=== PATIENT | female | born 1990 | race Caucasian/White ===

== ENCOUNTER 2018-01-18 17:26 | Emergency (ER) | payer BC, SELFPAY ==
[2018-01-18 17:39] VITALS: BP 156/89; PULSE 91; RESP 18; TEMP 36.7; O2SAT 100; BMI 26.6
--- NOTE | 2018-01-18 17:51 | HMH.EDUTC ---
[facility] [place] Disposition Clinical Impression: Tonsillitis with exudate Disposition: Home, Self-Care Condition on Discharge: Good Instructions: DI for Strep Throat Additional Instructions: * Strep test negative but your throat is very concerning for bacterial infection * Start antibiotic ERICKSON and be sure to take as ordered for the FULL length of time although you should start to feel better in 24-48 hours. * change toothbrush and toothpaste 24-48 hours after starting antibiotic * Monitor Temp. Tylenol every 4 hours as needed no more then 5 times a day or 4000mg in 24 hours and/or ibuprofen every 6 hours as needed no more then 3200mg in 24 hours (as long as your primary care doctor has told you that it is ok to take both) for fever/aches/pain. ER if fever no less than 101 despite tylenol and Ibuprofen * Encourage fluids, water, gatorade, powerade, pedialyte if /toddler/child * cold fluids, popsicles, ice cream feel good * you are contagious until you have taken the antibiotic for 24 hours. * Avoid kissing anyone, including parents. No eating or drinking after anyone. You are contagious. * * Your throat swab was sent for culture. Those results are typically sent to your primary care. Be sure to follow up in 2-3 days if no improvement so they can review those results and treat if necessary. If you don't have primary care, I recommend you get one but in the mean time, you will have to return to a walk in clinic. Prescriptions: Amoxicillin [Amoxicillin 500mg Cap] 500 mg PO TID #30 cap Referrals: Marichuy Newsome MD [Primary Care Provider] - (Follow up IMMEDIATELY for new or worsening symptoms OR no noticeable improvement over the next 48-72 hours. 911 for difficulty breathing or swallowing) Forms: Work/School Release Time of Disposition: 18:01 Medical Decision Making - Angelito Inquiry Pt receiving controlled substance: No Vital Signs: 01/18/18 17:39 Temperature 98.1 F Temperature Source Temporal Artery Scan Pulse Rate [Brachial] 91 H Respiratory Rate 18 Blood Pressure [Right Arm] 156/89 Blood Pressure Mean [Right Arm] 111 Blood Pressure Source [Right Arm] Automatic Cuff Blood Pressure Position [Right Arm] Sitting 02 Sat by Pulse Oximetry 100 Oxygen Delivery Method Room Air - Lab Data Lab results reviewed: Yes: I reviewed the patient's lab results. Strep neg [facility] [place] HPI - General Stated complaint: Sore throat, white patches, left ear pain Time Seen by Provider: 01/18/18 17:51 Mode of Arrival: Ambulatory Source of Information: Patient Limitations: No Limitations Description of Symptoms (Recalled from Triage Doc. by RN): LT EAR, LT SIDE OF THROAT, FEVER, AND H/A X 3 DAYS HEENT Symptoms (Recalled from RN notes): Yes Resp Symptoms (Recalled from RN notes): No Skin Symptoms (Recalled from RN notes): No MS Symptoms (Recalled from RN notes): No Functional Status (Recalled from RN notes): NA - History of Present Illness Provider Complaint: c/o sore throat, aches, chills, left ear pain x 3 days. Worse each day. pain worse to swallow. Feeling feverish. Ibuprofen helps. Hasn't taken or tried anything else. No known sick contacts. - Related Data Previous Rx's Medication Instructions Recorded Amoxicillin [Amoxicillin 500mg 500 mg PO TID #30 cap 01/18/18 Cap] Allergies Allergy/AdvReac Type Severity Reaction Status Date / Time SULFA (sulfonamide) Allergy Unknown Uncoded 10/12/17 14:52 - Worker's Comp Is this a Worker's Comp case?: No [facility] History I have reviewed the patient's past medical history: Yes Medical History: Denies:: Diabetes Mellitus Type 1, Diabetes Mellitus Type 2, Hypertension Other Surgeries: Yes: No Previous Surgery - Social History Smoking Status: Current every day smoker Alcohol Intake: never - Psychiatric History Expresses thoughts of harming self/others: None Suicide Plan Description: No Plan ROS Obtained: Yes Systems reviewed as appropriate & no additional compla
--- NOTE | 2018-01-18 17:57 | ED_ITS ---
[facility] [place] Disposition Clinical Impression: Tonsillitis with exudate Disposition: Home, Self-Care Condition on Discharge: Good Instructions: DI for Strep Throat Additional Instructions: * Strep test negative but your throat is very concerning for bacterial infection * Start antibiotic ERICKSON and be sure to take as ordered for the FULL length of time although you should start to feel better in 24-48 hours. * change toothbrush and toothpaste 24-48 hours after starting antibiotic * Monitor Temp. Tylenol every 4 hours as needed no more then 5 times a day or 4000mg in 24 hours and/or ibuprofen every 6 hours as needed no more then 3200mg in 24 hours (as long as your primary care doctor has told you that it is ok to take both) for fever/aches/pain. ER if fever no less than 101 despite tylenol and Ibuprofen * Encourage fluids, water, gatorade, powerade, pedialyte if /toddler/ child * cold fluids, popsicles, ice cream feel good * you are contagious until you have taken the antibiotic for 24 hours. * Avoid kissing anyone, including parents. No eating or drinking after anyone. You are contagious. * * Your throat swab was sent for culture. Those results are typically sent to your primary care. Be sure to follow up in 2-3 days if no improvement so they can review those results and treat if necessary. If you don't have primary care , I recommend you get one but in the mean time, you will have to return to a walk in clinic. Prescriptions: Amoxicillin [Amoxicillin 500mg Cap] 500 mg PO TID #30 cap Referrals: Marichuy Newsome MD [Primary Care Provider] - (Follow up IMMEDIATELY for new or worsening symptoms OR no noticeable improvement over the next 48-72 hours. 911 for difficulty breathing or swallowing) Forms: Work/School Release Time of Disposition: 18:01 Medical Decision Making - Angelito Inquiry Pt receiving controlled substance: No Vital Signs: 01/18/18 17:39 Temperature 98.1 F Temperature Source Temporal Artery Scan Pulse Rate [Brachial] 91 H Respiratory Rate 18 Blood Pressure [Right Arm] 156/89 Blood Pressure Mean [Right Arm] 111 Blood Pressure Source [Right Arm] Automatic Cuff Blood Pressure Position [Right Arm] Sitting 02 Sat by Pulse Oximetry 100 Oxygen Delivery Method Room Air - Lab Data Lab results reviewed: Yes: I reviewed the patient's lab results. Strep neg [facility] [place] HPI - General Stated complaint: Sore throat, white patches, left ear pain Time Seen by Provider: 01/18/18 17:51 Mode of Arrival: Ambulatory Source of Information: Patient Limitations: No Limitations Description of Symptoms (Recalled from Triage Doc. by RN): LT EAR, LT SIDE OF THROAT, FEVER, AND H/A X 3 DAYS HEENT Symptoms (Recalled from RN notes): Yes Resp Symptoms (Recalled from RN notes): No Skin Symptoms (Recalled from RN notes): No MS Symptoms (Recalled from RN notes): No Functional Status (Recalled from RN notes): NA - History of Present Illness Provider Complaint: c/o sore throat, aches, chills, left ear pain x 3 days. Worse each day. pain worse to swallow. Feeling feverish. Ibuprofen helps. Hasn' t taken or tried anything else. No known sick contacts. - Related Data Previous Rx's Medication Instructions Recorded Amoxicillin [Amoxicillin 500mg 500 mg PO TID #30 cap 01/18/18 Cap] Allergies Allergy/AdvReac Type Severity Reaction Status Date / Time SULFA (sulfonamide) Allergy Unknown Uncoded 10/12/17 14:52
[2018-01-18 18:07] VITALS: BP 156/89; PULSE 91; RESP 18; TEMP 36.6
[2018-01-18 18:12] LABS: UTC Strep Screen (Rapid) Negative (Negative)
== END 2018-01-18 18:10 | disposition home or self-care (01) ==
PROVIDERS: Emergency Provider Nurse Practitioner Family; PCP Family Medicine
DX: J03.90 Acute tonsillitis, unspecified (principal)
CPT/HCPCS: 87880; 99201

== ENCOUNTER 2020-07-28 11:19 | Emergency (ER) | payer BC, SELFPAY ==
[2020-07-28 11:41] VITALS: BP 143/85; PULSE 83; RESP 20; TEMP 36.6; O2SAT 99; BMI 28.2
--- NOTE | 2020-07-28 11:49 | HMH.EDUTC ---
[facility] [place] Disposition Clinical Impression: Bronchitis Upper respiratory infection Qualifiers: URI type: unspecified URI Qualified Code(s): J06.9 - Acute upper respiratory infection, unspecified Disposition: Home, Self-Care Condition on Discharge: Good Instructions: Sore Throat, Acute Bronchitis, Cough, DI for Sinusitis Additional Instructions: *Monitor Temp, Over the counter Motrin or Tylenol as directed/as needed Tylenol every 4 hours and Motrin every 6 hours (as long as your family doctor has told you that you can take it) for fever or pain. and straight to ER if unable to lower temp less than 101.0 after medication given *Warm salt water gargles may help to soothe the throat *Throat Lozenges *Warm fluids like tea with honey may help to soothe the throat *Sleep elevated *Humidifier/Vaporizer *Flonase 2 sprays in each nostril daily but be aware that it may take 2-3 days before you notice improvement Follow up IMMEDIATELY for new or worsening symptoms or no Noticeable improvement over the next 48-72 hours. 911 for difficulty breathing or swallowing You was tested for today for COVID19 your test result should be back later this evening, you may call back later this evening to see if your test results are back and the result You was given a handout with instructions for Self Quarantine and Self isolation for while you wait on test results and what to do if they are positive Prescriptions: Albuterol Sulfate [Proventil-HFA 90mcg/puff Inh] 1 - 2 puffs IH Q4HP PRN #1 inh PRN Reason: Shortness Of Breath Transmission Status: Received by [id number] # methylPREDNISolone [Medrol 4mg tab] 4 mg PO DIRECTED #21 tab Transmission Status: Received by [id number] # Azithromycin [Z-Neville 250mg Tab] 250 mg PO DIRECTED #6 tab Transmission Status: Received by [id number] # Referrals: Marichuy Newsome MD [Primary Care Provider] - As needed Forms: Work/School Release Time of Disposition: 12:12 Medical Decision Making - Angelito Inquiry Pt receiving controlled substance: No Angelito was queried for this patient: No Vital Signs: 07/28/20 11:41 07/28/20 12:20 Temperature 97.8 F 97.8 F Temperature Source Oral Oral Pulse Rate 83 Pulse Rate [Radial] 83 Respiratory Rate 20 20 Blood Pressure 143/85 H Blood Pressure [Right Arm] 143/85 H Blood Pressure Mean [Right Arm] 104 Blood Pressure Source Automatic Cuff Blood Pressure Source [Right Arm] Automatic Cuff Blood Pressure Position Sitting Blood Pressure Position [Right Arm] Sitting 02 Sat by Pulse Oximetry 99 Oxygen Delivery Method Room Air Room Air [facility] [place] HPI - General Stated complaint: pain back Time Seen by Provider: 07/28/20 11:49 Mode of Arrival: Ambulatory Source of Information: Patient Limitations: No Limitations Description of Symptoms (Recalled from Triage Doc. 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
[2020-07-28 12:20] VITALS: BP 143/85; PULSE 83; RESP 20; TEMP 36.6; O2SAT 99
== END 2020-07-28 12:21 | disposition home or self-care (01) ==
PROVIDERS: Emergency Provider Nurse Practitioner; PCP Family Medicine
DX: J20.9 Acute bronchitis, unspecified (principal); Z20.828 Contact with and (suspected) exposure to other viral communicable diseases; F17.210 Nicotine dependence, cigarettes, uncomplicated; Z88.2 Allergy status to sulfonamides
CPT/HCPCS: 99201; U0003

== ENCOUNTER 2020-08-28 17:57 | Emergency (ER) | payer BC, SELFPAY ==
[2020-08-28 18:12] VITALS: BP 146/88; PULSE 64; RESP 19; TEMP 36.7; O2SAT 99; BMI 26.6
--- NOTE | 2020-08-28 18:33 | HMH.EDUTC ---
[facility] [place] Disposition Clinical Impression: Viral syndrome Diarrhea Qualifiers: Diarrhea type: unspecified type Qualified Code(s): R19.7 - Diarrhea, unspecified Disposition: Home, Self-Care Condition on Discharge: Good Instructions: Diarrhea, DI for Nausea -- Adult, Ondansetron Additional Instructions: ? Avoid fruit juices, as these do not replace minerals and can actually increase diarrhea. ? Children and adults can use sports drinks to replenish electrolytes. Younger children and infants should use products formulated for children, like oral rehydration solutions. ? Eat food in small amounts and let your stomach recover. ? Get lots of rest. You may feel tired or weak. ? No greasy or fried foods for the next 24-48 hours BRAT diet Bananas Rice Apples and [place] ? Make sure to drink plenty of liquids ? Return if needed ? Straight to ER if any life threatening symptoms ? Zofran as prescribed ? You was given an outpatient order for diarrhea panel, please collect specimen and bring back to outpatient lab then call back to the [facility] or follow up with family doctor for results ? Follow up with family doctor in the next 48-72 hours if no improvement or any worsening of symptoms You was tested for today for COVID19 your test result should be back tomorrow or Wednesday, you may call back tomorrow to see if your test results are back and the result You was given a handout with instructions for Self Quarantine and Self isolation for while you wait on test results and what to do if they are positive Prescriptions: Dicyclomine HCl [Bentyl 10mg capsule] 10 mg PO TID PRN #15 cap PRN Reason: Cramping Transmission Status: Received by [facility] # Ondansetron [Zofran 4mg ODT] 4 mg PO TIDP PRN #9 tab PRN Reason: Nausea Transmission Status: Received by [facility] # Referrals: Marichuy Newsome MD [Primary Care Provider] - As needed Forms: Work/School Release Time of Disposition: 18:56 Medical Decision Making - Angelito Inquiry Pt receiving controlled substance: No Angelito was queried for this patient: No Vital Signs: 08/28/20 18:12 Temperature 98.1 F Temperature Source Oral Pulse Rate [Left Brachial] 64 Respiratory Rate 19 Blood Pressure [Right Arm] 146/88 H Blood Pressure Mean [Right Arm] 107 Blood Pressure Source [Right Arm] Automatic Cuff Blood Pressure Position [Right Arm] Sitting 02 Sat by Pulse Oximetry 99 Orders (Tests/Meds): ORDERS Category Date Time Status Covid-19 Nasal PCR Sendout [facility] 08/28/20 18:37 Ordered Medical Decision Narrative: No diarrhea or vomiting since arrival [facility] [place] HPI - General Stated complaint: dIARRHEA Time Seen by Provider: 08/28/20 18:33 Mode of Arrival: Ambulatory Source of Information: Patient Limitations: No Limitations Description of Symptoms (Recalled from Triage Doc. by RN): Pt states she has had diarrhea x's 3 days HEENT Symptoms (Recalled from RN notes): No Resp Symptoms (Recalled from RN notes): No Skin Symptoms (Recalled from RN notes): No MS Symptoms (Recalled from RN notes): No Functional Status (Recalled from RN notes): wnl - History of Present Illness Provider Complaint: Patient state that family member recently had the stomach bug States that about 3 days ago she started feeling bad like she was getting sick and today she is having body aches, chills, nausea and still having some diarrhea States that she hasnt vomited yet but feels like she is going to vomit. States that she hasnt eat anything since lunch but she has been drinking States that she is unsure if she has been exposed to COVID or not - Related Data Previous Rx's Medication Instructions Recorded Amoxicillin/Potassium Clav 1 tab PO Q12H 10 Days #20 tab 12/17/19 [Augmentin 875-125 Tablet] Fluticasone Propionate [Flonase 1 spr NS DAILY #1 bottle 12/17/19 50mcg nasal spray 16gm] Albuterol Sulfate [Proventil-HFA 1 - 2 puffs IH Q4HP PRN #1 inh 07/28/20 90mcg/puff
[2020-08-28 19:12] VITALS: BP 146/88; PULSE 64; RESP 19; TEMP 36.7; O2SAT 99
[2020-08-30 14:12] LABS: Covid-19 Nasal PCR Sendout Lex NOT DETECTED
== END 2020-08-28 19:13 | disposition home or self-care (01) ==
PROVIDERS: Emergency Provider Nurse Practitioner; PCP Family Medicine
DX: R19.7 Diarrhea, unspecified (principal); F17.210 Nicotine dependence, cigarettes, uncomplicated; Z88.2 Allergy status to sulfonamides
CPT/HCPCS: 99201; U0004

== ENCOUNTER 2020-09-15 12:12 | Emergency (ER) | payer BC, SELFPAY ==
[2020-09-15 12:35] VITALS: BP 134/92; PULSE 92; RESP 14; TEMP 36.8; O2SAT 100; BMI 25.8
--- NOTE | 2020-09-15 13:26 | HMH.EDUTC ---
[facility] [place] Impression: Exposure to COVID-19 virus Sinusitis Qualifiers: Sinusitis location: unspecified location Chronicity: acute Recurrence: non-recurrent Qualified Code(s): J01.90 - Acute sinusitis, unspecified Otitis media Qualifiers: Otitis media type: suppurative Chronicity: acute Laterality: bilateral Recurrence: non-recurrent Spontaneous tympanic membrane rupture: without spontaneous rupture Qualified Code(s): H66.003 - Acute suppurative otitis media without spontaneous rupture of ear drum, bilateral Disposition: Home, Self-Care Condition on Discharge: Good Instructions: Sinusitis, DI for Sinusitis, Preventing the Spread of Coronavirus Discharge Instructions Additional Instructions: Drink plenty of fluids. Take tylenol for pain or fever. Return if you begin to have difficulty breathing. Follow up with your regular doctor. GO TO THE ER FOR ANY WORSENING SYMPTOMS Prescriptions: Brompheniramine/Pseudoephed/Dm [Bromfed Dm Cough Syrup] 5 ml PO Q6HP PRN #240 syrup PRN Reason: Cough Transmission Status: Received by [facility] #[id number] Azithromycin [Z-Neville 250mg Tab*] 250 mg PO UD DOSE PK #6 tab Transmission Status: Received by [facility] #[id number] Referrals: Marichuy Newsome MD [Primary Care Provider] - Forms: Work/School Release Time of Disposition: 13:42 Medical Decision Making - Medical Records Medical records reviewed: No: I reviewed the patient's medical records. - Angelito Inquiry Pt receiving controlled substance: No Vital Signs: 09/15/20 12:35 09/15/20 13:49 Temperature 98.3 F 98.3 F Temperature Source Oral Pulse Rate 92 H Pulse Rate [Right Brachial] 92 H Respiratory Rate 14 14 Blood Pressure 134/92 H Blood Pressure [Right Arm] 134/92 H Blood Pressure Mean [Right Arm] 106 Blood Pressure Source [Right Arm] Automatic Cuff Blood Pressure Position [Right Arm] Sitting 02 Sat by Pulse Oximetry 100 Oxygen Delivery Method Room Air Orders (Tests/Meds): ORDERS Category Date Time Status Covid-19 Nasal PCR Sendout Routine Lab 09/15/20 13:40 Received [facility] [place] - General Stated complaint: cough, head congestion, ear pain Time Seen by Provider: 09/15/20 13:26 Mode of Arrival: Ambulatory Source of Information: Patient Limitations: No Limitations Description of Symptoms (Recalled from Triage Doc. by RN): PATIENT C/O RUNNY NOSE, NASAL CONGESTION, COUGH, HEADACHE, SORE THROAT, AND EAR ACHE SINCE WEDNESDAY HEENT Symptoms (Recalled from RN notes): Yes Resp Symptoms (Recalled from RN notes): Yes Skin Symptoms (Recalled from RN notes): No MS Symptoms (Recalled from RN notes): No Functional Status (Recalled from RN notes): wnl - History of Present Illness Provider Complaint: She c/o sinus congestion, cough, body aches for the past 2 days. 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 - Related Data Previous Rx's Medication Instructions Recorded Amoxicillin/Potassium Clav 1 tab PO Q12H 10 Days #20 tab 12/17/19 [Augmentin 875-125 Tablet] Fluticasone Propionate [Flonase 1 spr NS DAILY #1 bottle 12/17/19 50mcg nasal spray 16gm] Albuterol Sulfate [Proventil-HFA 1 - 2 puffs IH Q4HP PRN #1 inh 07/28/20 90mcg/puff Inh] Azithromycin [Z-Neville 250mg Tab] 250 mg PO DIRECTED #6 tab 07/28/20 methylPREDNISolone [Medrol 4mg 4 mg PO DIRECTED #21 tab 07/28/20 tab] Dicyclomine HCl [Bentyl 10mg 10 mg PO TID PRN #15 cap 08/28/20 capsule] Ondansetron [Zofran 4mg ODT] 4 mg PO TIDP PRN #9 tab 08/28/20 Azithromycin [Z-Neville 250mg Tab*] 250 mg PO UD DOSE PK #6 tab 09/15/20 Brompheniramine/Pseudoephed/Dm 5 ml PO Q6HP PRN #240 syrup 09/15/20 [Bromfed Dm Cough Syrup] Allergies Allergy/AdvReac Type Severity Reaction Status Date / Time Sulfa (Sulfonamide Allergy Verified 01/24/18 15:21 Antibiotics) - Worker's Comp Is this a Worker's Comp c
[2020-09-15 13:49] VITALS: BP 134/92; PULSE 92; RESP 14; TEMP 36.8; O2SAT 100
[2020-09-16 10:17] LABS: Covid-19 Nasal PCR Sendout UK Not Detected
== END 2020-09-15 13:52 | disposition home or self-care (01) ==
PROVIDERS: Emergency Provider Nurse Practitioner Family; PCP Family Medicine
DX: Z20.828 Contact with and (suspected) exposure to other viral communicable diseases (principal); J01.90 Acute sinusitis, unspecified; H66.003 Acute suppurative otitis media without spontaneous rupture of ear drum, bilateral
CPT/HCPCS: 99201; U0003

== ENCOUNTER 2021-06-09 16:43 | Emergency (ER) | payer BC, SELFPAY ==
[2021-06-09 18:30] VITALS: BP 157/76; PULSE 64; RESP 17; TEMP 36.8; O2SAT 99; BMI 27.1
--- NOTE | 2021-06-09 18:58 | HMH.EDUTC ---
[facility] [place] Disposition Clinical Impression: Viral syndrome, Encounter for laboratory testing for COVID-19 virus Disposition: Home, Self-Care Condition on Discharge: Good Instructions: DI for COVID-19 (Suspected or Confirmed ), Coronavirus Disease 2019, Preventing the Spread of Coronavirus Discharge Instructions Additional Instructions: *Monitor Temp, Over the counter Motrin or Tylenol as directed/as needed Tylenol every 4 hours and Motrin every 6 hours (as long as your family doctor has told you that you can take it) for fever or pain. and straight to ER if unable to lower temp less than 101.0 after medication given *Warm salt water gargles may help to soothe the throat *Throat Lozenges *Warm fluids like tea with honey may help to soothe the throat *Sleep elevated *Humidifier/Vaporizer *Flonase 2 sprays in each nostril daily but be aware that it may take 2-3 days before you notice improvement *Bromfed may cause drowsiness. Know how it effects you (your child) before driving, caring for small child, or sending your child to school. Not other antihistamines/allergy medications while taking bromfed Follow up IMMEDIATELY for new or worsening symptoms or no Noticeable improvement over the next 48-72 hours. 911 for difficulty breathing or swallowing You were tested for today for COVID19 your test result should be back in the next 24-48 hours, you may call to the [facility] to see if your test results are back in the next 48 hours [phone] [facility] hours are 9am-9pm You was given a handout with instructions for Self Quarantine and Self isolation for while you wait on test results and what to do if they are positive If you are positive the Health Dept will be contacting you also Make sure to take your Vitamins Vit. C Vit D and Zinc if you can take them Prescriptions: Brompheniramine/Pseudoephed/Dm [Bromfed Dm Cough Syrup] 5 - 10 ml PO Q46H PRN #200 ml PRN Reason: Cough Transmission Status: Pending to [facility] # Ondansetron [Zofran 4mg ODT] 4 mg PO TIDP PRN #6 tab PRN Reason: Nausea Transmission Status: Pending to [facility] # Referrals: Marichuy Newsome MD [Primary Care Provider] - As needed Forms: Work/School Release Time of Disposition: 19:08 Medical Decision Making - Angelito Inquiry Pt receiving controlled substance: No Angelito was queried for this patient: No Vital Signs: 06/09/21 18:30 Temperature 98.2 F Temperature Source Oral Pulse Rate [Right Brachial] 64 Respiratory Rate 17 Blood Pressure [Right Arm] 157/76 H Blood Pressure Mean [Right Arm] 103 Blood Pressure Source [Right Arm] Automatic Cuff Blood Pressure Position [Right Arm] Sitting 02 Sat by Pulse Oximetry 99 Oxygen Delivery Method Room Air Orders (Tests/Meds): ORDERS Category Date Time Status Covid-19 Nasal PCR ([facility] Routine Lab 06/09/21 18:39 Received Medical Decision Narrative: Patient reports that she is currently on her Menstrual period now [facility] [place] HPI - General Stated complaint: cough, runny nose, headache, covid test Time Seen by Provider: 06/09/21 18:58 Mode of Arrival: Ambulatory Source of Information: Patient Limitations: No Limitations Description of Symptoms (Recalled from Triage Doc. by RN): PATIENT C/O RUNNY NOSE, COUGH, HEADACHE, AND NAUSEA X 2 DAYS HEENT Symptoms (Recalled from RN notes): Yes Resp Symptoms (Recalled from RN notes): No Skin Symptoms (Recalled from RN notes): No MS Symptoms (Recalled from RN notes): No Functional Status (Recalled from RN notes): WNL - History of Present Illness Provider Complaint: Patient state that she wanted to get tested for COVID States that she has been having sinus congestion and pressure for 2 days with headache cough and nausea State that today she has been having body aches and chills and wanted to get tested for COVID - Related Data Previous Rx's Medication Instructions Recorded Brompheniramine/Pseudoephed/Dm 5 - 10 ml PO Q46H PRN #200 ml
[2021-06-09 19:10] VITALS: BP 157/76; PULSE 64; RESP 17; TEMP 36.8; O2SAT 99
== END 2021-06-09 19:13 | disposition home or self-care (01) ==
PROVIDERS: Emergency Provider Nurse Practitioner; PCP Family Medicine
DX: B34.9 Viral infection, unspecified (principal); Z20.822 Contact with and (suspected) exposure to COVID-19; F17.210 Nicotine dependence, cigarettes, uncomplicated
CPT/HCPCS: 99202; G0463; U0003

== ENCOUNTER 2021-07-05 10:33 | Emergency (ER) | payer BC, SELFPAY ==
--- NOTE | 2021-07-05 10:42 | XR_ITS ---
PROCEDURE INFORMATION: Exam: XR Right Foot Exam date and time: 07/05/2021 10:42 AM Age: 30 years old Clinical indication: Injury or trauma; Other: Kicked a dresser; Sprain or strain; Toes; Right great toe TECHNIQUE: Imaging protocol: XR Right foot. Views: 3 or more views. COMPARISON: No relevant prior studies available. FINDINGS: Bones/joints: No acute fracture or traumatic malalignment. Soft tissues: Normal. IMPRESSION: No acute osseous abnormality.
[2021-07-05 11:04] VITALS: BP 146/98; PULSE 67; RESP 15; TEMP 36.7; O2SAT 100; BMI 27.4
--- NOTE | 2021-07-05 12:56 | HMH.EDUTC ---
[facility] [place] Disposition Clinical Impression: Left foot pain Disposition: Home, Self-Care Condition on Discharge: Good Instructions: DI for Foot Pain Additional Instructions: Rest the extremity, apply ice for 15 minutes as tolerated three or four times per day, Wear the kinjal wrap for compression, Elevate the extremity as tolerated while you are resting. Take ibuprofen for pain. Follow up with Dr. Emmanuel (podiatry). Sometimes there can be fractures that don't show up well on the first set of x-rays. So, you should follow up if you continue to have symptoms. I put in a referral but you need to call her office and schedule an appointment. Follow up with your regular doctor. GO TO THE ER FOR ANY WORSENING SYMPTOMS Prescriptions: predniSONE [Prednisone 20mg Tab] 20 mg PO BID 4 Days #8 tab Transmission Status: Received by [facility] #[id number] Referrals: Marichuy Newsome MD [Primary Care Provider] - Lucie Emmanuel DPM [Staff Physician] - Time of Disposition: 13:00 Medical Decision Making - Medical Records Medical records reviewed: No: I reviewed the patient's medical records. - Angelito Inquiry Pt receiving controlled substance: No Vital Signs: 07/05/21 11:04 07/05/21 13:07 Temperature 98.1 F 98.1 F Temperature Source Oral Pulse Rate 67 Pulse Rate [Left] 67 Respiratory Rate 15 15 Blood Pressure 146/98 H Blood Pressure [Right Arm] 146/98 H Blood Pressure Mean [Right Arm] 114 02 Sat by Pulse Oximetry 100 - Radiology Data #1 Image(s): Foot/Toes Image Reviewed: Yes I reviewed the patient's radiology image, Yes I have reviewed radiologist's interpretation Preliminary Findings: No Fracture Seen PROCEDURE INFORMATION: Exam: XR Right Foot Exam date and time: 07/05/2021 10:42 AM Age: 30 years old Clinical indication: Injury or trauma; Other: Kicked a dresser; Sprain or strain; Toes; Right great toe TECHNIQUE: Imaging protocol: XR Right foot. Views: 3 or more views. COMPARISON: No relevant prior studies available. FINDINGS: Bones/joints: No acute fracture or traumatic malalignment. Soft tissues: Normal. IMPRESSION: No acute osseous abnormality. [facility] [place] HPI - General Stated complaint: a/o 9/3 rt foot pain swelling Time Seen by Provider: 07/05/21 11:15 Mode of Arrival: Ambulatory Source of Information: Patient Limitations: No Limitations Description of Symptoms (Recalled from Triage Doc. by RN): pt c/o of R foot pain at the base of her great toe. pt states she kicker a dresser about a week ago and its just not getting better. HEENT Symptoms (Recalled from RN notes): No Resp Symptoms (Recalled from RN notes): No Skin Symptoms (Recalled from RN notes): No MS Symptoms (Recalled from RN notes): Yes (R foot pain) Functional Status (Recalled from RN notes): na - History of Present Illness Provider Complaint: She c/o left foot pain at the base of her great toe. Her symptoms began about a week ago after she tried to kick a drawer closed and hurt her foot. Since then, she has had progressivly worsening tenderness and pain. Walking and bearing weight makes her pain worse. - Related Data Previous Rx's Medication Instructions Recorded Brompheniramine/Pseudoephed/Dm 5 - 10 ml PO Q46H PRN #200 ml 06/09/21 [Bromfed Dm Cough Syrup] Ondansetron [Zofran 4mg ODT] 4 mg PO TIDP PRN #6 tab 06/09/21 predniSONE [Prednisone 20mg 20 mg PO BID 4 Days #8 tab 07/05/21 Tab] Allergies Allergy/AdvReac Type Severity Reaction Status Date / Time Sulfa (Sulfonamide Allergy Verified 01/24/18 15:21 Antibiotics) - Worker's Comp Is this a Worker's Comp case?: No [facility] History - Hepatitis A Screen Drug use history?: No High risk sexual behaviors?: No History of sexually transmitted infection?: No Currently employed?: No Childcare worker?: No Do you have indoor plumbing?: Yes Do you
[2021-07-05 13:07] VITALS: BP 146/98; PULSE 67; RESP 15; TEMP 36.7
== END 2021-07-05 13:07 | disposition home or self-care (01) ==
PROVIDERS: Emergency Provider Nurse Practitioner Family; PCP Family Medicine
DX: M79.672 Pain in left foot (principal); F17.210 Nicotine dependence, cigarettes, uncomplicated
CPT/HCPCS: 73630; 99202; G0463

== ENCOUNTER → 2021-07-28 13:00 | Outpatient (CLI) | payer BC, SELFPAY | PROVIDERS: PCP Family Medicine; Visit Provider Nurse Practitioner | DX: Z20.822 Contact with and (suspected) exposure to COVID-19 (principal) | CPT/HCPCS: C9803; U0003; U0005 ==

== ENCOUNTER 2021-08-03 10:35 | Emergency (ER) | payer BC, SELFPAY ==
[2021-08-03 10:42] VITALS: BP 159/77; PULSE 88; RESP 19; TEMP 36.7; O2SAT 100; BMI 27.4
--- NOTE | 2021-08-03 11:14 | HMH.EDUTC ---
[facility] [place] Disposition Clinical Impression: Otitis media Qualifiers: Otitis media type: suppurative Chronicity: acute Laterality: bilateral Recurrence: non-recurrent Spontaneous tympanic membrane rupture: without spontaneous rupture Qualified Code(s): H66.003 - Acute suppurative otitis media without spontaneous rupture of ear drum, bilateral Sinusitis Qualifiers: Sinusitis location: unspecified location Chronicity: unspecified Qualified Code(s): J32.9 - Chronic sinusitis, unspecified Disposition: Home, Self-Care Condition on Discharge: Good Instructions: Middle Ear Infection, DI for Sinusitis Additional Instructions: Drink plenty of fluids. Take tylenol or ibuprofen for pain or fever. Take the medications as directed. Follow up with your regular doctor. GO TO THE ER FOR ANY WORSENING SYMPTOMS Quarantine until you know the results of your covid-19 test. If it is positive, the health department should call you and give you further instructions about your length of Quarantine and other things. Notify your school or workplace of your results and follow their instructions regarding return to work/school. Prescriptions: Brompheniramine/Pseudoephed/Dm [Bromfed Dm Cough Syrup] 5 ml PO Q6HP PRN #240 ml PRN Reason: Cough Transmission Status: Received by [employer] # Amoxicillin/Potassium Clav [Augmentin 875-125 Tablet] 1 tab PO Q12H 10 Days #20 tab Transmission Status: Received by [employer] # methylPREDNISolone [Medrol] 4 mg PO DIRECTED 6 Days #21 packet Transmission Status: Received by [employer] # guaiFENesin [Mucinex 600mg tablet] 1 - 2 tab PO BIDP PRN #30 tab PRN Reason: Congestion Transmission Status: Received by [employer] # Referrals: Marichuy Newsome MD [Primary Care Provider] - Forms: Work/School Release Time of Disposition: 11:29 Medical Decision Making - Medical Records Medical records reviewed: No: I reviewed the patient's medical records. - Angelito Inquiry Pt receiving controlled substance: No Vital Signs: 08/03/21 10:42 08/03/21 11:19 Temperature 98.1 F 98.1 F Temperature Source Oral Pulse Rate 88 Pulse Rate [Left] 88 Respiratory Rate 19 19 Blood Pressure 159/77 H Blood Pressure [Right Arm] 159/77 H Blood Pressure Mean [Right Arm] 104 02 Sat by Pulse Oximetry 100 [facility] HPI - General Stated complaint: runny nose and ear pain Time Seen by Provider: 08/03/21 11:14 Mode of Arrival: Ambulatory Source of Information: Patient Limitations: No Limitations Description of Symptoms (Recalled from Triage Doc. by RN): pt c/o runny nose, cough and ear aches HEENT Symptoms (Recalled from RN notes): Yes (ear pressure and pain and runny nose) Resp Symptoms (Recalled from RN notes): Yes (cough) Skin Symptoms (Recalled from RN notes): No MS Symptoms (Recalled from RN notes): No Functional Status (Recalled from RN notes): na - History of Present Illness Provider Complaint: She states that for the past 7 days she has had sinus pressure, sinus congestion, and bilateral ear pain. She has been fully vaccinated against covid-19. She denies any fever or chills or significant chest congestion. - Related Data Previous Rx's Medication Instructions Recorded Brompheniramine/Pseudoephed/Dm 5 - 10 ml PO Q46H PRN #200 ml 06/09/21 [Bromfed Dm Cough Syrup] Ondansetron [Zofran 4mg ODT] 4 mg PO TIDP PRN #6 tab 06/09/21 predniSONE [Prednisone 20mg 20 mg PO BID 4 Days #8 tab 07/05/21 Tab] Amoxicillin/Potassium Clav 1 tab PO Q12H 10 Days #20 tab 08/03/21 [Augmentin 875-125 Tablet] Brompheniramine/Pseudoephed/Dm 5 ml PO Q6HP PRN #240 ml 08/03/21 [Bromfed Dm Cough Syrup] guaiFENesin [Mucinex 600mg tablet] 1 - 2 tab PO BIDP PRN #30 tab 08/03/21 methylPREDNISolone [Medrol] 4 mg PO DIRECTED 6 Days #21 08/03/21 packet Allergies Allergy/AdvReac Type Severity Reaction Status Date / Time Sulfa (Sulfonamide A
[2021-08-03 11:19] VITALS: BP 159/77; PULSE 88; RESP 19; TEMP 36.7
[2021-08-03 20:31] LABS: UTC Strep Screen (Rapid) Positive (Negative)
== END 2021-08-03 11:38 | disposition home or self-care (01) ==
PROVIDERS: Emergency Provider Nurse Practitioner Family; PCP Family Medicine
DX: H66.003 Acute suppurative otitis media without spontaneous rupture of ear drum, bilateral (principal); J32.9 Chronic sinusitis, unspecified
CPT/HCPCS: 87880; 99202; G0463

== ENCOUNTER → 2021-11-19 16:21 | Outpatient (CLI) | payer BC, SELFPAY | PROVIDERS: PCP Psychiatry & Neurology Sleep Medicine; Visit Provider Nurse Practitioner | DX: U07.1 COVID-19 (principal) | CPT/HCPCS: C9803; U0003; U0005 ==

== ENCOUNTER 2022-03-30 15:53 | Emergency (ER) | payer BC, SELFPAY ==
[2022-03-30 16:20] VITALS: BP 131/86; PULSE 81; RESP 18; TEMP 36.8; O2SAT 98; BMI 29.9
[2022-03-30 16:36] LABS: UTC Pregnancy Test, Urine Negative (Negative)
[2022-03-30 16:47] VITALS: BP 131/86; PULSE 81; RESP 18; TEMP 36.8; O2SAT 98
--- NOTE | 2022-03-30 16:48 | HMH.EDUTC ---
[facility] [place] Disposition Clinical Impression: Viral syndrome Headache Qualifiers: Headache type: unspecified Headache chronicity pattern: unspecified pattern Intractability: not intractable Qualified Code(s): R51.9 - Headache, unspecified Disposition: Home, Self-Care Condition on Discharge: Good Instructions: DI for Migraine, DI for Headache, Nausea and Vomiting-Adult Additional Instructions: Drink extra fluids with and between meals. If you have difficulty drinking, try very small amounts of water or suck on ice chips. ? Avoid fruit juices, as these do not replace minerals and can actually increase diarrhea. ? Children and adults can use sports drinks to replenish electrolytes. Younger children and infants should use products formulated for children, like oral rehydration solutions. ? Eat food in small amounts and let your stomach recover. ? Get lots of rest. You may feel tired or weak. ? No greasy or fried foods for the next 24-48 hours BRAT diet Bananas Rice Apples and [employer] ? Make sure to drink plenty of liquids ? Return if needed ? Straight to ER if any life threatening symptoms ? Zofran as prescribed ? Follow up with family doctor in the next 48-72 hours if no improvement or any worsening of symptoms *Monitor Temp, Over the counter Motrin or Tylenol as directed/as needed Tylenol every 4 hours and Motrin every 6 hours (as long as your family doctor has told you that you can take it) for fever or pain. and straight to ER if unable to lower temp less than 101.0 after medication given *Warm salt water gargles may help to soothe the throat *Throat Lozenges *Warm fluids like tea with honey may help to soothe the throat *Sleep elevated *Humidifier/Vaporizer You were tested for today for Upper Respiratory Panel with COVID19 your test result should be back in the next 24-48 hours, your results will be available to view on the [facility] My Health Portal Make sure to take your Vitamins Vit. C Vit D and Zinc if you can take them Follow up IMMEDIATELY for new or worsening symptoms or no Noticeable improvement over the next 48-72 hours. 911 for difficulty breathing or swallowing Prescriptions: Ondansetron [Zofran 4mg ODT] 4 mg PO TIDP PRN #10 tab PRN Reason: Nausea Transmission Status: Received by [facility] #[id number] Referrals: Marichuy Newsome MD [Primary Care Provider] - As needed Forms: Work/School Release Time of Disposition: 17:06 Medical Decision Making - Angelito Inquiry Pt receiving controlled substance: No Angelito was queried for this patient: No Vital Signs: 03/30/22 16:20 03/30/22 16:47 Temperature 98.3 F 98.3 F Temperature Source Oral Pulse Rate 81 Pulse Rate [Right Brachial] 81 Respiratory Rate 18 18 Blood Pressure 131/86 Blood Pressure [Right Arm] 131/86 Blood Pressure Mean [Right Arm] 101 Blood Pressure Source [Right Arm] Automatic Cuff Blood Pressure Position [Right Arm] Sitting 02 Sat by Pulse Oximetry 98 Oxygen Delivery Method Room Air - Lab Data Lab results reviewed: Yes: I reviewed the patient's lab results. Lab Results 03/30/22 16:29: [facility] Negative Orders (Tests/Meds): ED MEDICATIONS Discontinued Medications Generic Name Dose Route Start Last Admin Trade Name Freq PRN Reason Stop Dose Admin Ketorolac Tromethamine 60 mg 03/30/22 16:59 03/30/22 17:09 Ketorolac 60mg/2ml Vial IM 03/30/22 17:00 60 mg ONCE ONE Administration Methylprednisolone Sodium Succinate 125 mg 03/30/22 16:59 03/30/22 17:09 Methylprednisolone Sod Succ 125mg Vial IM 03/30/22 17:00 125 mg ONCE ONE Administration Ondansetron HCl 4 mg 03/30/22 16:59 03/30/22 17:09 Ondansetron 4mg Odt SL 03/30/22 17:00 4 mg ONCE ONE Administration ORDERS Category Date Time Status Covid-19 Nasal PCR ([facility]) Routine Lab 03/30/22 16:18 Received [facility] [place] HPI - General Stated complaint: HD/N AND Covid test Time Seen by Provider: 03/30/22 16:49 Mode of Arriva
== END 2022-03-30 17:26 | disposition home or self-care (01) ==
PROVIDERS: Emergency Provider Nurse Practitioner; PCP Family Medicine
DX: B34.9 Viral infection, unspecified (principal); R51.9 Headache, unspecified; R11.2 Nausea with vomiting, unspecified
CPT/HCPCS: 81025; 96372; 99212; C9803; G0463; U0003; U0005

== ENCOUNTER 2022-05-27 12:49 | Emergency (ER) | payer BC, SELFPAY ==
--- NOTE | 2022-05-27 13:09 | HMH.EDUTC ---
[facility] [place] Disposition Clinical Impression: Viral syndrome, Exposure to COVID-19 virus Disposition: Home, Self-Care Condition on Discharge: Good Instructions: DI for COVID-19 (Suspected or Confirmed ), Preventing the Spread of Coronavirus Discharge Instructions Additional Instructions: Drink plenty of fluids. Take tylenol or ibuprofen for pain or fever. Take the medications as directed. Follow up with your regular doctor. GO TO THE ER FOR ANY WORSENING SYMPTOMS Quarantine until you know the results of your covid-19 test. Notify your school or workplace of your results and follow their instructions regarding return to work/school. Prescriptions: Ondansetron [Zofran 4mg ODT] 4 mg PO Q8HP PRN #8 tab PRN Reason: Nausea Transmission Status: Received by [facility] # Benzonatate [Benzonatate 100mg cap] 100 mg PO TIDP PRN #30 cap PRN Reason: Cough Transmission Status: Received by [facility] # Referrals: Marichuy Newsome MD [Primary Care Provider] - Forms: Work/School Release Time of Disposition: 13:25 Medical Decision Making - Medical Records Medical records reviewed: No: I reviewed the patient's medical records. - Angelito Inquiry Pt receiving controlled substance: No Vital Signs: 05/27/22 13:12 05/27/22 13:35 Temperature 98.5 F 98.5 F Temperature Source Oral Pulse Rate 70 Pulse Rate [Left] 70 Respiratory Rate 17 17 Blood Pressure 152/71 H Blood Pressure [Right Arm] 152/71 H Blood Pressure Mean [Right Arm] 98 02 Sat by Pulse Oximetry 99 - Lab Data Lab results reviewed: Yes: I reviewed the patient's lab results. [facility] [place] HPI - General Stated complaint: covid exposure, h/a Time Seen by Provider: 05/27/22 13:10 - History of Present Illness Provider Complaint: She states that she has had a headache, chills, and she has felt bad since yesterday. - Related Data Previous Rx's Medication Instructions Recorded Brompheniramine/Pseudoephed/Dm 5 - 10 ml PO Q46H PRN #200 ml 06/09/21 [Bromfed Dm Cough Syrup] Ondansetron [Zofran 4mg ODT] 4 mg PO TIDP PRN #6 tab 06/09/21 predniSONE [Prednisone 20mg 20 mg PO BID 4 Days #8 tab 07/05/21 Tab] Amoxicillin/Potassium Clav 1 tab PO Q12H 10 Days #20 tab 08/03/21 [Augmentin 875-125 Tablet] Brompheniramine/Pseudoephed/Dm 5 ml PO Q6HP PRN #240 ml 08/03/21 [Bromfed Dm Cough Syrup] guaiFENesin [Mucinex 600mg tablet] 1 - 2 tab PO BIDP PRN #30 tab 08/03/21 methylPREDNISolone [Medrol] 4 mg PO DIRECTED 6 Days #21 08/03/21 packet Ondansetron [Zofran 4mg ODT] 4 mg PO TIDP PRN #10 tab 03/30/22 Benzonatate [Benzonatate 100mg 100 mg PO TIDP PRN #30 cap 05/27/22 cap] Ondansetron [Zofran 4mg ODT] 4 mg PO Q8HP PRN #8 tab 05/27/22 Allergies Allergy/AdvReac Type Severity Reaction Status Date / Time Sulfa (Sulfonamide Allergy Verified 05/27/22 13:15 Antibiotics) [facility] History - Hepatitis A Screen Attestation statement:: This patient has been screened for Hepatitis A risk factors. I have reviewed the patient's past medical history: Yes Medical History: Denies:: Diabetes Mellitus Type 1, Diabetes Mellitus Type 2, Hypertension Other Surgeries: Yes: No Previous Surgery - Social History Smoking Status: Current every day smoker Tobacco Type: cigarettes # Packs/Day (cigarettes): 1 Alcohol Intake: never Occupational Status: other Household Members: spouse, family Family Hx:: Diabetes, Cancer, Hypertension ROS Obtained: Yes All systems reviewed & no additional complaints - Constitutional Constitutional: Reports as per HPI - Eyes Eyes: Denies eye discharge - ENT Ears, Nose, Mouth, and Throat: Reports as per HPI - Cardiovascular Cardiovascular: Denies chest pain - Respiratory Respiratory: Denies chest congestion, Reports cough, Denies dyspnea, Denies stridor, Denies wheezing Physical Exam - General General appearance: alert, in no apparent
[2022-05-27 13:12] VITALS: BP 152/71; PULSE 70; RESP 17; TEMP 36.9; O2SAT 99; BMI 30.7
[2022-05-27 13:35] VITALS: BP 152/71; PULSE 70; RESP 17; TEMP 36.9
== END 2022-05-27 13:42 | disposition home or self-care (01) ==
PROVIDERS: Emergency Provider Nurse Practitioner Family; PCP Family Medicine
DX: B34.9 Viral infection, unspecified (principal); Z20.822 Contact with and (suspected) exposure to COVID-19; F17.210 Nicotine dependence, cigarettes, uncomplicated
CPT/HCPCS: 99212; C9803; G0463; U0003; U0005

== ENCOUNTER 2022-05-30 13:53 | Emergency (ER) | payer BC, SELFPAY ==
[2022-05-30 14:10] VITALS: BP 145/98; PULSE 68; RESP 19; TEMP 36.7; O2SAT 99; BMI 32.8
--- NOTE | 2022-05-30 14:26 | HMH.EDUTC ---
[facility] [place] [facility] [place] Clinical Impression: Exposure to COVID-19 virus, Encounter for laboratory testing for COVID-19 virus Upper respiratory infection Qualifiers: URI type: unspecified viral URI Qualified Code(s): J06.9 - Acute upper respiratory infection, unspecified Disposition: Home, Self-Care Condition on Discharge: Good Instructions: DI for COVID-19 (Suspected or Confirmed ) Additional Instructions: covid swab was sent to lab, call tomorrow for results. self isolate until test results are known to be negative No sign of a bacterial infection. Likely viral. Viruses can take 7-14 days to run their course. Nasal saline and bulb syringe or nose Ale to remove nasal drainage to help with nasal congestion. Hard to eat, drink, sleep with nasal congestion so important to keep this cleaned out. Monitor temp. Tylenol or Motrin as needed for pain or fever Encourage fluids, water, Gatorade, Powerade, Pedialyte if infant/toddler/child Warm salt water gargles Warm fluids Sore throat lozenges Sleep elevated Humidifier/vaporizer Follow-up immediately for new or worsening symptoms or no noticeable improvement over the next 48-72 hours. Referrals: Marichuy Newsome MD [Primary Care Provider] - Forms: Work/School Release Time of Disposition: 14:29 Medical Decision Making - Angelito Inquiry Pt receiving controlled substance: No Orders (Tests/Meds): ORDERS Category Date Time Status Covid-19 Nasal PCR ([facility]) Routine Lab 05/30/22 14:06 Received [facility] [place] [facility] [place] HPI - General Chief complaint: [facility] Stated complaint: covid exposure, cough, feels bad Time Seen by Provider: 05/30/22 14:26 Mode of Arrival: Ambulatory Source of Information: Patient Limitations: No Limitations - History of Present Illness Provider Complaint: 31 yr old female presents for covid test. pt states she is having body aches,chills,luong and nasal congestion. daughter tested + for covid - Related Data Previous Rx's Medication Instructions Recorded Brompheniramine/Pseudoephed/Dm 5 - 10 ml PO Q46H PRN #200 ml 06/09/21 [Bromfed Dm Cough Syrup] Ondansetron [Zofran 4mg ODT] 4 mg PO TIDP PRN #6 tab 06/09/21 predniSONE [Prednisone 20mg 20 mg PO BID 4 Days #8 tab 07/05/21 Tab] Amoxicillin/Potassium Clav 1 tab PO Q12H 10 Days #20 tab 08/03/21 [Augmentin 875-125 Tablet] Brompheniramine/Pseudoephed/Dm 5 ml PO Q6HP PRN #240 ml 08/03/21 [Bromfed Dm Cough Syrup] guaiFENesin [Mucinex 600mg tablet] 1 - 2 tab PO BIDP PRN #30 tab 08/03/21 methylPREDNISolone [Medrol] 4 mg PO DIRECTED 6 Days #21 08/03/21 packet Ondansetron [Zofran 4mg ODT] 4 mg PO TIDP PRN #10 tab 03/30/22 Benzonatate [Benzonatate 100mg 100 mg PO TIDP PRN #30 cap 05/27/22 cap] Ondansetron [Zofran 4mg ODT] 4 mg PO Q8HP PRN #8 tab 05/27/22 Allergies Allergy/AdvReac Type Severity Reaction Status Date / Time Sulfa (Sulfonamide Allergy Verified 05/27/22 13:15 Antibiotics) [facility] History - Hepatitis A Screen Attestation statement:: This patient has been screened for Hepatitis A risk factors. I have reviewed the patient's past medical history: Yes Medical History: Denies:: Diabetes Mellitus Type 1, Diabetes Mellitus Type 2, Hypertension Other Surgeries: Yes: No Previous Surgery - Social History Smoking Status: Current every day smoker Tobacco Type: cigarettes # Packs/Day (cigarettes): 1 Alcohol Intake: never Occupational Status: other Household Members: spouse, family Family Hx:: Diabetes, Cancer, Hypertension ROS Obtained: Yes Systems reviewed as appropriate & no additional complaints - Constitutional Constitutional: Reports system reviewed and no additional complaints, except as docu, Reports body ache, Reports chills, Reports fatigue, Denies fever(s) - Eyes Eyes: Reports system reviewed and no additional complaints, except as docu, Denies dry eyes - ENT Ears, Nose, Mouth, and Throat: Reports system reviewed and no additio
[2022-05-30 14:53] VITALS: BP 145/98; PULSE 68; RESP 19; TEMP 36.7; O2SAT 99
== END 2022-05-30 14:56 | disposition home or self-care (01) ==
PROVIDERS: Emergency Provider Nurse Practitioner Family; PCP Family Medicine
DX: J06.9 Acute upper respiratory infection, unspecified (principal); R51.9 Headache, unspecified; F17.210 Nicotine dependence, cigarettes, uncomplicated; Z20.822 Contact with and (suspected) exposure to COVID-19; Z88.2 Allergy status to sulfonamides; Z82.49 Family history of ischemic heart disease and other diseases of the circulatory system; Z83.3 Family history of diabetes mellitus; Z80.9 Family history of malignant neoplasm, unspecified
CPT/HCPCS: 99213; C9803; G0463; U0003; U0005

== ENCOUNTER 2022-09-01 10:46 | Emergency (ER) | payer BC, SELFPAY ==
--- NOTE | 2022-09-01 11:56 | EXP.UTC ---
Discharge Plan Disposition Patient Disposition: Home, Self-Care Condition: Good Prescriptions Prescriptions: New vunmujgadamizpa-iqbjtgasa-[id number] [Bromfed DM] 2-30-10 mg/5 mL Syrup 10 ml PO Q4H PRN (Reason: Cough) Qty: 240 0RF Referrals Follow up/Referrals: Marichuy Newsome MD [Primary Care Provider] - See instructions Activity Restrictions/Add. Instructions Additional Instructions/Restrictions: * No sign of bacterial infection. Likely viral. Virus can take 7-14 days to run their course *Nasal saline and bulb syringe or nose anthony to remove nasal drainage and help with nasal congestion. Hard to eat, drink, or sleep with nasal congestion so important to keep nose cleaned out. *Monitor Temp, Over the counter Motrin or Tylenol as directed/as needed Tylenol every 4 hours and Motrin every 6 hours (as long as your family doctor has told you that you can take it) for fever or pain. and straight to ER if unable to lower temp less than 101.0 after medication given *Warm salt water gargles may help to soothe the throat *Throat Lozenges? *Warm fluids like tea with honey may help to soothe the throat? *Sleep elevated *Humidifier/Vaporizer *Bromfed may cause drowsiness. Know how it effects you (your child) before driving, caring for small child, or sending your child to school. Not other antihistamines/allergy medications while taking bromfed Your throat swab was sent for culture. Those results are typically sent to your primary care. Be sure to follow up in 2-3 days with your family doctor/primary care physician if no improvement so they can review those result and treat if necessary. If you don?t have a primary care doctor, I recommend you get one but in the mean time, you will have to return to a walk in clinic Follow up IMMEDIATELY for new or worsening symptoms or no Noticeable improvement over the next 48-72 hours. 911 for difficulty breathing or swallowing You were tested for today for COVID19 your test result should be back in the next 24-48 hours, you may check your results on the [facility] Portal Clinical Impressions Clinical Impression: Viral syndrome Stand Alone Forms Stand Alone Forms: Work/School Release Instructions Patient Instructions: DI for Viral Syndrome, Cough Discharge ED Provider: Samara Kitchen [facility] [place] HPI General Stated complaint: cough sore throat, BOO Time Seen by Provider: 09/01/22 11:56 History of Present Illness Provider Complaint: Patient states that last week her child was dx with Rhino and she thinks she may have it now too States that she has been having sore throat, nasal congestion and pressure in head like she is getting stopped up States that earlier she had a coughing fit and it made her vomit so she left work and came in Related Data Previous Rx's Medication Instructions Recorded cnmbfgzqacvuhto-[id number]-[id number] 10 ml PO Q4H PRN Cough #240 mL 09/01/22 2 mg-30 mg-10 mg/5 mL oral syrup (Bromfed DM) Allergies Allergy/AdvReac Type Severity Reaction Status Date / Time Sulfa (Sulfonamide Allergy Verified 05/27/22 13:15 Antibiotics) [facility] 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 (Updated 09/01/22 @ 12:22 by Wilma Santacruz RN) History of section Social History (Updated 09/01/22 @ 12:22 by Wilma Santacruz RN) Smoking Status: Current every day smoker tobacco type: cigarettes packs per day: 1 alcohol intake: never current occupational status: other Travel in the last 8 weeks: None household members: spouse and family ROS Obtained: Yes All systems reviewed & no additional complaints except as documented and Yes Systems reviewed as appropriate & no additional complaints except as documented Constitutional Constitutional: Reports system reviewed and no additional complaints, except as documented, Reports as per HPI, Reports body ache and Reports headache(s) ENT Ears, Nose, Mouth, and Throat: Reports system reviewed and no additional
[2022-09-01 12:00] VITALS: BP 148/76; PULSE 80; RESP 19; TEMP 36.8; O2SAT 100; BMI 31.4
[2022-09-01 12:07] LABS: Adenovirus,PCR Not Detected (NotDetected); Bordetella Pertussis Not Detected (NotDetected); Chlamydophila Pneumoniae, PCR Not Detected (NotDetected); Coronavirus 19, PCR Not Detected (NotDetected); Coronavirus 229E Not Detected (NotDetected); Coronavirus NL63 Not Detected (NotDetected); Coronavirus OC43 Not Detected (NotDetected); Coronovirus HKU1,PCR Not Detected (NotDetected); Human Metapneumovirus Not Detected (NotDetected); Influenza AH1, 2009 Not Detected (NotDetected); Influenza AH1, PCR Not Detected (NotDetected); Influenza AH3,PCR Not Detected (NotDetected); Influenza B, PCR Not Detected (NotDetected); Mycoplasma Pneumoniae, PCR Not Detected (NotDetected); Parainfluenza 1, PCR Not Detected (NotDetected); Parainfluenza 2, PCR Not Detected (NotDetected); Parainfluenza 3, PCR Not Detected (NotDetected); Parainfluenza 4, PCR Not Detected (NotDetected); Respiratory Syncytial Virus Not Detected (NotDetected); Rhinovirus/Enterovirus Not Detected (NotDetected)
[2022-09-01 12:18] LABS: UTC Strep Screen (Rapid) Negative (Negative)
[2022-09-01 13:11] VITALS: BP 148/76; PULSE 80; RESP 19; TEMP 36.8; O2SAT 100
[2022-09-01 13:11] LABS: UTC Pregnancy Test, Urine Negative (Negative)
[2022-09-01 21:44] LABS: Influenza A, PCR Detected (NotDetected)
== END 2022-09-01 13:13 | disposition home or self-care (01) ==
PROVIDERS: Emergency Provider Nurse Practitioner; PCP Family Medicine
DX: J02.9 Acute pharyngitis, unspecified (principal); R51.9 Headache, unspecified; R05.9 Cough, unspecified; M79.10 Myalgia, unspecified site; F17.210 Nicotine dependence, cigarettes, uncomplicated; Z88.2 Allergy status to sulfonamides
CPT/HCPCS: 81025; 87581; 87632; 87798; 87880; 99213; C9803; G0463; U0003; U0005

== ENCOUNTER 2022-11-28 12:59 | Emergency (ER) | payer BC, SELFPAY ==
[2022-11-28 14:00] VITALS: BP 151/90; PULSE 84; RESP 18; TEMP 36.8; O2SAT 98; BMI 34.4
--- NOTE | 2022-11-28 14:25 | EXP.UTC ---
Discharge Plan Disposition Patient Disposition: Home, Self-Care Condition: Good Prescriptions Prescriptions: New azithromycin [azithromycin] 250 mg tablet 250 mg PO DIRECTED Qty: 6 0RF Rx Instructions: Take two (2) tablets on day #1, then one (1) tablet day #2 thru #5 fluticasone propionate [fluticasone propionate] 50 mcg/actuation spray,suspension 1 spray intranasal DAILY Qty: 9.9 0RF Referrals Follow up/Referrals: Marichuy Newsome MD [Primary Care Provider] - See instructions Activity Restrictions/Add. Instructions Additional Instructions/Restrictions: Start antibiotic patient to take as ordered for a full length of time even if you feel better. Sinus infections do not get better overnight. It may take 2-3 days to notice much improvement so be sure to use conservative measures as discussed for symptoms. Flonase 1 spray each nostril daily to help with nasal congestion, sinus and ear pressure/information Increase fluids Humidifier/vaporizer as needed Tylenol and ibuprofen as needed for fever or pain. If symptoms do not improve or get worse return or be seen in the ER Follow-up with primary care this week Clinical Impressions Clinical Impression: Sinusitis Instructions Patient Instructions: DI for Sinusitis Discharge ED Provider: Isaura ([facility])Roel [facility] [place] HPI General Stated complaint: Sore throat congestion drainage cough Mode of Arrival: Ambulatory Source of Information: Patient Limitations: No Limitations Time Seen by Provider: 11/28/22 14:25 Description of Symptoms (Recalled from Triage Doc. by RN): PATIENT C/O SINUS CONGESTION, COUGH, HEADACHE, AND LEFT EAR ACHE X 3 DAYS HEENT Symptoms (Recalled from RN notes): Yes Resp Symptoms (Recalled from RN notes): Yes Skin Symptoms (Recalled from RN notes): No MS Symptoms (Recalled from RN notes): No Functional Status (Recalled from RN notes): WNL History of Present Illness Provider Complaint: 32 yr old female presents for nasal congestion, cough,thick yellow/green drainage, sinus pressure, sinus tenderness, and left ear pain for 3 days Related Data Previous Rx's Medication Instructions Recorded azithromycin 250 mg tablet 250 mg PO DIRECTED #6 tabs 11/28/22 fluticasone propionate 50 1 spray intranasal DAILY #9.9 mL 11/28/22 mcg/actuation nasal spray,suspension Allergies Allergy/AdvReac Type Severity Reaction Status Date / Time Sulfa (Sulfonamide Allergy Verified 05/27/22 13:15 Antibiotics) Worker's Comp Is this a Worker's Comp case?: No [facility] Disclaimer: The information contained in this section may have been updated after the patient was seen, as this information can be updated by other users. 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) Smoking Status: Current every day smoker tobacco type: cigarettes packs per day: 1 alcohol intake: never current occupational status: other Travel in the last 8 weeks: None household members: spouse and family ROS Obtained: Yes All systems reviewed & no additional complaints except as documented Constitutional Constitutional: Reports system reviewed and no additional complaints, except as documented, Reports as per HPI and Reports fever(s) Eyes Eyes: Reports system reviewed and no additional complaints, except as documented ENT Ears, Nose, Mouth, and Throat: Reports system reviewed and no additional complaints, except as documented, Reports as per HPI, Reports otalgia, Reports nasal congestion, Reports nasal discharge, Reports post nasal drip, Reports sinus pain, Reports sinus pressure and Reports sore throat Cardiovascular Cardiovascular: Reports system reviewed and no additional complaints, except as documented Respiratory Respiratory: Reports system reviewed and no additional complaints, except as documented Gastrointestina
[2022-11-28 14:36] VITALS: BP 151/90; PULSE 84; RESP 18; TEMP 36.8; O2SAT 98
== END 2022-11-28 14:41 | disposition home or self-care (01) ==
PROVIDERS: Emergency Provider Nurse Practitioner Family; PCP Family Medicine
DX: J32.9 Chronic sinusitis, unspecified (principal)
CPT/HCPCS: 99212; 99213; G0463

== ENCOUNTER 2023-10-02 12:41 | Emergency (ER) | payer SELFPAY ==
[2023-10-02 12:50] VITALS: BP 131/78; PULSE 86; RESP 18; TEMP 36.7; O2SAT 99; BMI 35.2
[2023-10-02 13:24] LABS: UTC Strep Screen (Rapid) Negative (Negative)
--- NOTE | 2023-10-02 13:30 | EXP.UTC ---
Discharge Plan Disposition Patient Disposition: Home, Self-Care Condition: Good Prescriptions Prescriptions: New cefdinir 300 mg capsule 300 mg PO Q12H Qty: 20 0RF Referrals Follow up/Referrals: Marichuy Newsome MD [Primary Care Provider] - See instructions Clinical Impressions Clinical Impression: Acute upper respiratory infection Acute pharyngitis Qualifiers: Pharyngitis/tonsillitis etiology: unspecified etiology Qualified Code(s): J02.9 - Acute pharyngitis, unspecified Instructions Patient Instructions: DI for Viral Upper Respiratory Infection -- Adult, DI for Strep Throat Discharge ED Provider: Argenis Washington [facility] [place] HPI General Stated complaint: sore throat, runny nose, cough, chills Mode of Arrival: Ambulatory Source of Information: Patient Limitations: No Limitations Time Seen by Provider: 10/02/23 13:30 Description of Symptoms (Recalled from Triage Doc. by RN): PATIENT C/O COUGH, CONGESTION, RUNNY NOSE, SORE THROAT, HEADACHE AND LEFT EAR PAIN SINCE YESTERDAY HEENT Symptoms (Recalled from RN notes): Yes Resp Symptoms (Recalled from RN notes): Yes Skin Symptoms (Recalled from RN notes): No MS Symptoms (Recalled from RN notes): No Functional Status (Recalled from RN notes): WNL History of Present Illness Provider Complaint: Pt reports cough, clear sinus drainage, and sore throat. She states that she has taken Bromfed for her symptoms. She reports that and all 3 of her children have strep. Related Data Previous Rx's Medication Instructions Recorded cefdinir 300 mg capsule 300 mg PO Q12H #20 caps 10/02/23 Allergies Allergy/AdvReac Type Severity Reaction Status Date / Time Sulfa (Sulfonamide Allergy Verified 05/27/22 13:15 Antibiotics) Worker's Comp Is this a Worker's Comp case?: No [facility] Disclaimer: The information contained in this section may have been updated after the patient was seen, as this information can be updated by other users. 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) Smoking Status: Current every day smoker tobacco type: cigarettes packs per day: 1 alcohol intake: never current occupational status: other Travel in the last 8 weeks: None household members: spouse and family ROS Obtained: Yes All systems reviewed & no additional complaints except as documented Constitutional Constitutional: Reports system reviewed and no additional complaints, except as documented, Reports headache(s) and Reports malaise Eyes Eyes: Reports system reviewed and no additional complaints, except as documented ENT Ears, Nose, Mouth, and Throat: Reports system reviewed and no additional complaints, except as documented, Reports otalgia, Reports headache(s), Reports nasal congestion, Reports nasal discharge, Reports odynophagia and Reports sore throat Cardiovascular Cardiovascular: Reports system reviewed and no additional complaints, except as documented Respiratory Respiratory: Reports system reviewed and no additional complaints, except as documented and Reports non-productive cough Gastrointestinal Gastrointestingal: Reports system reviewed and no additional complaints, except as documented and odynophagia Genitourinary Female Genitourinary: Reports system reviewed and no additional complaints, except as documented Musculoskeletal Musculoskeletal: Reports system reviewed and no additional complaints, except as documented Integumentary/Breasts Skin/Breast: Reports system reviewed and no additional complaints, except as documented Neurologic Neurologic: Reports system reviewed and no additional complaints, except as documented and Reports headache(s) Endocrine Endocrine: Reports system reviewed and no additional complaints, except as documented Hematologic/Lymphatic Henatologic/Lymphatic: Reports system reviewed and no addition
[2023-10-02 13:50] VITALS: BP 131/78; PULSE 86; RESP 18; TEMP 36.7; O2SAT 99
== END 2023-10-02 13:54 | disposition home or self-care (01) ==
PROVIDERS: Emergency Provider Nurse Practitioner Family; PCP Family Medicine
DX: J02.9 Acute pharyngitis, unspecified (principal); J06.9 Acute upper respiratory infection, unspecified; R51.9 Headache, unspecified; R05.9 Cough, unspecified; R09.81 Nasal congestion; H92.02 Otalgia, left ear; R53.81 Other malaise; F17.210 Nicotine dependence, cigarettes, uncomplicated; Z20.818 Contact with and (suspected) exposure to other bacterial communicable diseases
CPT/HCPCS: 87880; 99212; 99214; G0463

== ENCOUNTER 2023-10-08 11:04 | Emergency (ER) | payer SELFPAY ==
[2023-10-08 12:20] VITALS: BP 141/77; PULSE 84; RESP 18; TEMP 36.8; O2SAT 97; BMI 35.2
--- NOTE | 2023-10-08 13:00 | EXP.UTC ---
Discharge Plan Disposition Patient Disposition: Home, Self-Care Condition: Good Prescriptions Prescriptions: New azithromycin [Zithromax Z-[place]] 250 mg tablet See Rx Instructions .ROUTE .COMPLEX 5 Days Qty: 6 0RF Rx Instructions: For 250 mg dose pack: take 500 mg today (day 1), then 250 mg for 4 days (days 2-5) guaifenesin [Mucinex] 600 mg tablet extended release 12hr 1,200 mg PO BID PRN (Reason: cough) Qty: 20 0RF albuterol sulfate [Proventil HFA] 90 mcg/actuation HFA aerosol inhaler 1 - 2 puff inhalation Q6H PRN (Reason: shortness of breath or wheezing) Qty: 8.5 0RF promethazine-DM 6.25-15 mg/5 mL syrup 5 ml PO Q6H PRN (Reason: cough) Qty: 118 0RF No Action cefdinir 300 mg capsule 300 mg PO Q12H Qty: 20 0RF Referrals Follow up/Referrals: Marichuy Newsome MD [Primary Care Provider] - See instructions Activity Restrictions/Add. Instructions Additional Instructions/Restrictions: Start antibiotic today. Be sure to complete entire prescription even if feeling better Monitor temp. Tylenol every 4 hours as needed and / or ibuprofen every 6 hours as needed ( As long as your primary care physician has told you that it ok to take both. For fever/aches/pains ER if no less than 101 despite Tylenol or Motrin Humidifier/vaporizer or hot steamy shower Inhaler every 4-6 hours as needed like we discussed. If unsure how to use it, ask pharmacist to demonstrate how. Should help open airways and improve cough, wheezing, and shortness of breath Mucinex during the day for your cough and cough suppressant only at night. Be sure to drink lots of water. Insurance may not cover a prescriptions for mucinex. Might be cheaper to get 400mg tablets and take 2 tablet in the morning, mid-day and evening with lots of water. *Promethazine DM cough syrup will cause drowsiness. Use only at night. No driving, operating machinery or caring for small children after taking it *Continue taking your steroid. Helps with inflammation therefore, cough and wheezing. Follow directions on the package. Reviewed side effects. Patient reports taking them before. Follow up IMMEDIATELY for new or worsening of symptoms OR no noticeable improvement over the next 48-72 hours. 911 immediately for any life threatening symptoms such as chest pain or difficulty breathing Clinical Impressions Clinical Impression: Bronchitis Sinusitis Qualifiers: Sinusitis location: unspecified location Chronicity: unspecified Qualified Code(s): J32.9 - Chronic sinusitis, unspecified Instructions Patient Instructions: Sinusitis, Acute Bronchitis, DI for Sinusitis Discharge ED Provider: Samara Kitchen [facility] [place] General Stated complaint: SOA, congestion, heavy cough Mode of Arrival: Ambulatory Source of Information: Patient Limitations: No Limitations Time Seen by Provider: 10/08/23 13:00 Description of Symptoms (Recalled from Triage Doc. by RN): Pt stated that she was seen on sat and was given abx. She stated that he cough has gotten worse. She is currently taken steroid she had at the house with bromfed. Her symptoms are cough, pain with coughing, BOO, and back pain. HEENT Symptoms (Recalled from RN notes): Yes Resp Symptoms (Recalled from RN notes): No Skin Symptoms (Recalled from RN notes): No MS Symptoms (Recalled from RN notes): No Functional Status (Recalled from RN notes): n/a History of Present Illness Provider Complaint: Patient states that she was seen over the weekend last week and all her kids had strep throat States that she was having strep throat symptoms and they told her that her throat looked like strep so she was started on Cefdinir States that her throat is feeling better but feels like it is moving into her lungs States that she is coughing worse and she had a Medrol pack at home that she started and it has helped some and has been taking bromfed but feels like it is not co
[2023-10-08 13:36] VITALS: BP 141/77; PULSE 84; RESP 18; TEMP 36.8; O2SAT 97
== END 2023-10-08 13:36 | disposition home or self-care (01) ==
PROVIDERS: Emergency Provider Nurse Practitioner; PCP Family Medicine
DX: J20.9 Acute bronchitis, unspecified (principal); J01.90 Acute sinusitis, unspecified; R07.1 Chest pain on breathing; R05.8 Other specified cough; R09.81 Nasal congestion; R51.9 Headache, unspecified; M54.6 Pain in thoracic spine; F17.210 Nicotine dependence, cigarettes, uncomplicated
CPT/HCPCS: 99212; 99214; G0463

== ENCOUNTER 2024-07-24 11:54 | Emergency (ER) | payer BC, SELFPAY ==
[2024-07-24 12:35] VITALS: BP 132/83; PULSE 83; RESP 21; TEMP 36.9; O2SAT 98; BMI 30.7
--- NOTE | 2024-07-24 12:39 | EXP.UTC ---
Discharge Plan Disposition Patient Disposition: Home, Self-Care Condition: Good Prescriptions Prescriptions: New benzonatate 100 mg capsule 100 mg PO TIDP PRN (Reason: Cough) Qty: 30 0RF methylprednisolone 4 mg Tablets,Dose Pack 4 mg PO DIRECTED 6 Days Qty: 21 0RF Rx Instructions: Take 1 pack as directed for 6 days cefdinir 300 mg capsule 300 mg PO BID Qty: 20 0RF Referrals Follow up/Referrals: Marichuy Newsome MD [Primary Care Provider] - See instructions Activity Restrictions/Add. Instructions Additional Instructions/Restrictions: Drink plenty of fluids. Take tylenol or ibuprofen for pain or fever. Take the medications as directed. Follow up with your regular doctor. GO TO THE ER FOR ANY WORSENING SYMPTOMS Clinical Impressions Clinical Impression: Acute viral syndrome Acute pharyngitis Qualifiers: Pharyngitis/tonsillitis etiology: unspecified etiology Qualified Code(s): J02.9 - Acute pharyngitis, unspecified Stand Alone Forms Stand Alone Forms: Work/School Release Instructions Patient Instructions: Sore Throat, DI for Pharyngitis/Tonsillopharyngitis -- Adult Print Language Print Language: [place] Discharge ED Provider: Klever Granado [facility] [place] HPI General Stated complaint: sore throat, blisters on throat, chills Time Seen by Provider: 07/24/24 12:39 Related Data Previous Rx's ?Medication ?Instructions ?Recorded benzonatate 100 mg capsule 100 mg PO TIDP PRN Cough #30 caps 07/24/24 cefdinir 300 mg capsule 300 mg PO BID #20 caps 07/24/24 methylprednisolone 4 mg tablets in 4 mg PO DIRECTED 6 days #21 tabs 07/24/24 a dose pack Allergies Allergy/AdvReac Type Severity Reaction Status Date / Time Sulfa (Sulfonamide Allergy Verified 10/08/23 12:[address] [facility] Disclaimer: The information contained in this section may have been updated after the patient was seen, as this information can be updated by other users. 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 Social History Smoking Status: Current every day smoker tobacco type: cigarettes packs per day: 1 alcohol intake: never current occupational status: other Travel in the last 8 weeks: None household members: spouse and family ROS Obtained: Yes All systems reviewed & no additional complaints except as documented Constitutional Constitutional: Reports chills and Reports fever(s) Eyes Eyes: Denies eye discharge ENT Ears, Nose, Mouth, and Throat: Reports as per HPI Cardiovascular Cardiovascular: Denies chest pain Respiratory Respiratory: Denies chest congestion and Reports cough Gastrointestinal Gastrointestingal: Reports nausea; Denies abdominal pain, constipation, cramping, diarrhea or vomiting Musculoskeletal Musculoskeletal: Denies arthralgias Integumentary/Breasts Skin/Breast: Denies rash Neurologic Neurologic: Denies paresthesias Physical Exam General General appearance: alert and in no apparent distress Head Head exam: atraumatic, normocephalic and normal inspection Eye Eye exam: Present normal appearance, PERRL and EOMI ENT ENT exam: Present mucous membranes moist and normal external ear exam Expanded ENT Exam TM/Canal exam: Bilateral TM: erythema and bulging Nose exam: Absent sinus tenderness Mouth exam: Present normal external inspection; Absent drooling Teeth exam: Present normal inspection Throat exam: Present tonsillar erythema, tonsillomegaly and tonsillar exudate Neck Neck exam: Present normal inspection, full ROM and trachea midline; Absent tenderness, meningismus or lymphadenopathy Chest Chest inspection: Present normal inspection and symmetric chest wall rise; Absent tenderness Respiratory Respiratory exam: Present normal lung sounds bilaterally; Absent respiratory distress, wheezes, stridor or accessory muscle use Cardiovascular Cardiovascular exam: Present regular rate and normal rhythm; Absent systolic murmur or diastolic murmur Abdominal Exam Abdominal exam: Present soft and normal bowel sounds; Absent distention, tenderness, guarding, rebound or rigidity Extremities Exam Extremities exam: Present normal inspection and normal capillary refill; Absent calf tenderness Back Exam Back exam: Present normal inspection and full ROM; Absent tenderness, CVA tenderness (R) or CVA tenderness (L) Neurological Exam Neurological exam: Present alert, oriented X3 and CN II-XII intact Psychiatric Psychiatric exam: Present normal affect and normal mood Skin Skin exam: Present warm, dry, intact and normal color Medical Decision Making Medical Records Medical records reviewed: No I reviewed the patient's medical records. Screening: Per USPSTF and CDC recommendations, given the prevalence of disease in our region, it is our hospital?s policy to screen for HIV and viral Hepatitis for all patients aged 18 and over and those with ongoing risk factors. [place] Inquiry Pt receiving controlled substance: No Lab Data Lab results reviewed: Yes I reviewed the patient's lab results.
[2024-07-24 12:50] LABS: UTC Strep Screen (Rapid) Negative (Negative)
[2024-07-24 13:07] VITALS: BP 132/83; PULSE 83; RESP 21; TEMP 36.9; O2SAT 98
== END 2024-07-24 13:11 | disposition home or self-care (01) ==
PROVIDERS: Emergency Provider Nurse Practitioner Family; PCP Family Medicine
DX: J02.9 Acute pharyngitis, unspecified (principal); B34.9 Viral infection, unspecified
CPT/HCPCS: 87635; 87880; 99212; 99214; G0463

== ENCOUNTER 2024-11-11 10:15 | Outpatient (CLI) | payer BC, SELFPAY ==
[2024-11-11 10:42] LABS: Basophils % 0.4 % (0.1-2.0); Eosinophils # 0.2 K/mm3 (0.0-0.4); Hematocrit 45.5 % (37.0-47.0); Hemoglobin 15.7 g/dL (12.2-16.2); Lymphocytes # 3.6 K/mm3 (0.7-4.5); Lymphocytes % 34.1 % (10-50); Mean Corpuscular HGB Conc 34.5 g/dL (31.8-35.4); Mean Corpuscular Hemoglobin 30.8 pg (27.0-31.2); Mean Corpuscular Volume 89.2 fl (81-99); Monocytes # 0.6 K/mm3 (0.1-1.0); Monocytes % 5.9 % (1.7-9.3); Neutrophils # 6.1 K/mm3 (1.8-7.8); Neutrophils % 57.3 % (37.0-80.0); Platelet Count 357 K/mm3 (142-424); Red Cell Distribution Width 13.1 % (11.5-17.5); White Blood Count 10.6 K/mm3 (4.8-10.8)
[2024-11-11 11:07] LABS: Alanine Aminotransferase 26 U/L (12-78); Albumin Level 4.8 g/dl (3.5-5.0); Albumin/Globulin Ratio 1.9 (1.1-1.8); Alkaline Phosphatase 97 U/L (38-126); Aspartate Amino Transferase 25 U/L (14-36); Bilirubin,Total 0.3 mg/dl (0.2-1.3); Blood Urea Nitrogen 16 mg/dl (7-17); Calcium 10.2 mg/dl (8.4-10.2); Carbon Dioxide 25 mmol/L (22.0-30.0); Chloride 104 mmol/L (98-107); Chol/HDL Ratio 4.6 (1-3.5); Cholesterol 210 mg/dl (140-200); Estimated Glomerular Filt Rate 82 ml/min (>60); GFR (African American) 99 ML/MIN (>60); Globulin 2.5 g/dL (1.3-3.2); Glucose 94 mg/dl (74-100); HDL Cholesterol 46 mg/dl (40-60); Sodium 138 mmol/L (136-145); Total Protein,Serum 7.3 g/dl (6.3-8.2); Triglycerides 103 mg/dl (30-150); VLDL Cholesterol 21 mg/dL (0-40)
[2024-11-11 11:10] LABS: Anion Gap 13.5 mEq/L (5-15); Potassium 4.5 mmoL/L (3.5-5.1)
[2024-11-11 11:18] LABS: Direct LDL Cholesterol 146.01 mg/dL (100-129)
[2024-11-11 11:23] LABS: 25-OH Vitamin D, Total 18.4 ng/mL (30-100)
[2024-11-11 11:25] LABS: Free Thyroxine Index 2.7 ug/dL (5.93-13.13); Triiodothryronine (T3) Uptake 27 % (23.5-40.5)
[2024-11-11 11:38] LABS: Thyroid Stimulating Hormone 2.73 uIU/mL (0.465-4.68)
[2024-11-11 12:05] LABS: Hemoglobin A1C 5.5 % (4.0-6.0)
[2024-11-11 12:06] LABS: Vitamin B12 982 pg/mL (239-931)
== END 2024-11-11 23:59 | disposition home or self-care (01) ==
PROVIDERS: PCP Internal Medicine Adolescent Medicine; Visit Provider Internal Medicine Adolescent Medicine
DX: Z00.00 Encounter for general adult medical examination without abnormal findings (principal); I45.6 Pre-excitation syndrome; R55 Syncope and collapse; Z83.3 Family history of diabetes mellitus; R63.5 Abnormal weight gain
CPT/HCPCS: 36415; 80053; 80061; 82306; 82533; 82607; 83036; 84436; 84443; 84479; 85025; 93225; 93226